=== PATIENT | male | born 2000 | race Two or more races ===

== ENCOUNTER 2025-04-06 03:14 | Emergency (ER) | payer MEDICAID, SELFPAY ==
[2025-04-06 03:15] VITALS: BMI 22.4
[2025-04-06 03:27] VITALS: BP 120/74; PULSE 69; RESP 19; TEMP 36.5; O2SAT 100
--- NOTE | 2025-04-06 04:43 | XR_ITS ---
Examination: PA chest single view Technique: Upright PA chest single view Date and time: April 06, 2025 0445 hrs. Indications: Chest chest pain beginning 2 weeks ago. Findings: Normal heart size. Lungs are clear. The osseous structures are intact Impression: No active disease
--- NOTE | 2025-04-06 04:44 | PD.EDRME ---
Rapid Medical Screening Exam RME Arrival date/time: 04/06/25 03:14 24M with history of anxiety presents to ED with 2 weeks of CP every day. Patient denies URI symptoms. Patient states this doesn't feel like his anxiety attacks. Chief Complaint: Chest Pain Vital signs: Vital Signs Temperature 97.7 F 04/06/25 03:27 Pulse Rate 69 04/06/25 03:27 Respiratory Rate 19 04/06/25 03:27 Blood Pressure 120/74 04/06/25 03:27 Pulse Oximetry (%) 100 04/06/25 03:27 Oxygen Delivery Method Room Air 04/06/25 03:27
[2025-04-06] MEDS: DIAZEPAM 5 MG TABLET PO (05:09)
[2025-04-06 05:10] VITALS: BP 120/64; PULSE 67; RESP 19; TEMP 36.4; O2SAT 97
[2025-04-06 05:19] LABS: Basophils # (Auto) 0.0 Thou/mm3 (0.0-0.2); Basophils % (Auto) 1 % (0-2.5); Eosinophils # (Auto) 0.2 Thou/mm3 (0.0-0.5); Eosinophils % (Auto) 3 % (0-10); Hematocrit 34.2 % (41.0-53.0); Hemoglobin 10.5 g/dL (13.5-16.0); Immature Granulocytes Auto 0.01 Thou/mm3 (0.00-0.00); Lymphocytes # (Auto) 1.9 Thou/mm3 (1.0-4.8); Lymphocytes % (Auto) 30 % (10-50); Mean Corpuscular HGB Conc 30.7 g/dl (31.0-37.0); Mean Corpuscular Hemoglobin 23.9 pg (25.0-35.0); Mean Corpuscular Volume 78 fL (80-100); Monocytes # (Auto) 0.7 Thou/mm3 (0.0-0.8); Monocytes % (Auto) 12 % (0-12); Neutrophils # (Auto) 3.3 Thou/mm3 (1.8-7.7); Neutrophils % (Auto) 54 % (37-80); Nucleated Red Blood Cell # 0.00 Thou/mm3 (0.00-0.00); Nucleated Red Blood Cell % 0 /100 WBC (0); Platelet Count 247 Thou/mm3 (140-440); RDW Standard Deviation 45.2 fL (35.1-43.9); Red Blood Count 4.40 Miln/mm3 (4.50-5.90); White Blood Count 6.2 Thou/mm3 (3.8-10.6)
[2025-04-06 05:31] LABS: Amphetamine/Methamp Scrn,U Negative (Negative); Barbiturate Screen,Urine Negative (Negative); Benzodiazepines Screen,Urine Negative (Negative); Benzoylecgonine Screen, Ur Negative (Negative); Fentanyl Screen,Urine Negative (Negative); Opiate Screen,Urine Negative (Negative); THC Screen,Urine Negative (Negative)
[2025-04-06 05:36] LABS: Alanine Aminotransferase 24 U/L (10-49); Albumin, Serum 4.5 gm/dL (3.5-5.0); Albumin/Globulin Ratio 1.6 (1.2-2.2); Alkaline Phosphatase 78 U/L (46-116); Anion Gap 9 (7-16); Aspartate Amino Transferase 28 U/L (0-34); BUN/Creatinine Ratio 9 Ratio (12-20); Bilirubin,Total 0.3 mg/dL (0.3-1.2); Blood Urea Nitrogen 9 mg/dL (9-23); Calcium 9.2 mg/dL (8.3-10.6); Calcium (Corrected) 9.2 mg/dL (8.5-10.1); Carbon Dioxide 24.7 mMol/L (20.0-31.0); Chloride 106 mMol/L (98-107); Creatinine (Component) 1.0 mg/dL (0.6-1.3); Estimated Creatinine Clearance 129.0 mL/min (>60); Globulin 2.8 gm/dL (2.3-3.5); Glucose 96 mg/dL (74-106); Osmolality,Calculated 278 (275-295); Potassium 4.0 mMol/L (3.4-5.1); Sodium 140 mMol/L (136-145); Total Protein 7.3 gm/dL (5.7-8.2); Troponin I < 0.002 ng/mL (0.0-0.045); eGFR > 60 See Note
--- NOTE | 2025-04-06 07:35 | EDNOTE_ITS ---
<Statement entered by Haily Fontenot MD - 04/25/25 06:08> As co-signing physician, I was present and available for consult prn. I concur with the plan and care as documented by the midlevel provider. ED Chest Pain RME/HPI General Chief Complaint: Chest Pain Stated Complaint: CHEST PAIN X2 WEEKS Time Seen by Provider: 04/06/25 07:34 Arrival date/time: 04/06/25 03:14 24M with history of anxiety presents to ED with 2 weeks of CP every day. Patient denies URI symptoms. Patient states this doesn't feel like his anxiety attacks. Limitations: no limitations RME / HPI RME / HPI narrative: 04/06/25 03:14 24M with history of anxiety presents to ED with 2 weeks of CP every day. Patient denies URI symptoms. Patient states this doesn't feel like his anxiety attacks. Related Data Previous Rx's ?Medication ?Instructions ?Recorded baclofen 10 mg tablet 10 mg PO BID #14 tabs ibuprofen 800 mg tablet 800 mg PO TID PRN pain #30 t abs 01/23/22 hydrocodone 5 mg-acetaminophen 325 1 tab PO BID PRN pa in #10 tabs 04/30/22 mg tablet ibuprofen 600 mg tablet 600 mg PO Q8H PRN pain #20 tabs 04/30/22 ibuprofen 600 mg tablet 600 mg PO TID PRN fever or p ain 10/20/22 #30 tabs hydrocodone 5 mg-acetaminophen 325 1 tab PO BID PRN pa in #10 tabs 08/25/23 mg tablet ibuprofen 800 mg tablet 800 mg PO TID PRN pain #30 t abs 08/25/23 Allergies Allergy/AdvReac Type Severity Reaction Status Date / Time No Known Allergies Allergy Verified 08/25/23 17:33 Review of Systems Review of Systems Systems Reviewed: All systems reviewed, normal except as documented Constitutional Constitutional: Reports system reviewed and no additional complaints, except as documented, Denies fever(s) and Denies headache(s) Eyes Eyes: Reports system reviewed and no additional complaints, except as documented and Denies blurry vision ENT Ears, Nose, Mouth, and Throat: Reports system reviewed and no additional complaints, except as documented, Denies headache(s), Denies nasal congestion and Denies nasal discharge Cardiovascular Cardiovascular: Reports system reviewed and no additional complaints, except as documented, Reports chest pain and Denies dyspnea Respiratory Respiratory: Reports system reviewed and no additional complaints, except as documented, Denies chest congestion, Denies cough and Denies dyspnea Gastrointestinal Gastrointestinal: Reports system reviewed and no additional complaints, except as documented and Denies abdominal pain Integumentary/Breasts Skin/Breast: Reports system reviewed and no additional complaints, except as documented and Denies rash Neurologic Neurologic: Reports system reviewed and no additional complaints, except as documented, Reports as per HPI and Denies headache(s) Psychiatric Psychiatric: Reports system reviewed and no additional complaints, except as documented and Reports anxiety Past Medical History Social History SMOKING STATUS: Never smoker ED Exam General Limitations: Present no limitations General appearance: Present alert and in no apparent distress Head Head exam: Present atraumatic, normocephalic and normal inspection Eye Eye exam: Present normal appearance, PERRL and EOMI; Absent conjunctival injection ENT ENT exam: Present normal exam, normal oropharynx and mucous membranes moist Neck Neck exam: Present normal inspection, full ROM and trachea midline Chest Chest inspection: Present normal inspection and symmetric chest wall rise Respiratory Respiratory exam: Present normal lung sounds bilaterally; Absent respiratory distress Cardiovascular Cardiovascular exam: Present regular rate, normal rhythm and normal heart sounds Abdominal Exam Abdominal exam: Present soft and normal bowel sounds Extremities Exam Extremities exam: Present normal inspection and full ROM Back Exam Back exam: Present normal inspection and full ROM Neurological Exam Neurological exam: Present alert, oriented X3 and CN II-XII intact Psychiatric Psychiatric exam: Present normal affect and normal mood Skin Skin exam: Present warm, dry, intact and normal color; Absent rash Course Quality Measures none Orders Category Date Time Status EKG (ED ONLY) *Do not use* NOW Care 04/06/25 03:26 Completed EKG (ED Only) Stat Exams 04/06/25 03:26 Ordered XR chest 1V portable Stat Exams 04/06/25 04:43 Completed CBC Stat Lab 04/06/25 05:00 Completed Comprehensive Metabolic Panel Stat Lab 04/06/25 05:00 Completed Drug Screen,Urine Stat Lab 04/06/25 04:53 Completed Troponin I Stat Lab 04/06/25 05:00 Completed Diazepam [Valium] Med 04/06/25 04:43 Discontinued 5 mg PO X1 ONE Vital Signs Vital signs: Vital Signs Temperature 97.7 F 04/06/25 03:27 Pulse Rate 69 04/06/25 03:27 Respiratory Rate 19 04/06/25 03:27 Blood Pressure 120/74 04/06/25 03:27 Pulse Oximetry (%) 100 04/06/25 03:27 Oxygen Delivery Method Room Air 04/06/25 03:27 O2 saturation 100% room air within the limits PROCEDURES: EKG Interpretation #1: Date of EK04/06/25 Time of EK:19 Rate: 68 Interpretation: Interpreted by me EKG Impression: Normal sinus rhythm, No acute ST-T changes, No ectopy, No ischemic changes, Normal QRS, Normal intervals and Normal axis Chest Pain MDM Narrative MDM Narrative:: 24M with history of anxiety presents to ED with 2 weeks of CP every day. Patient denies URI symptoms. Patient states this doesn't feel like his anxiety attacks. On exam patient well-appearing patient does not appear toxic distress Lab work imaging and EKG obtained prior to my arrival EKG, lab work and imaging obtained no acute emergent findings noted Patient discharged home in no distress to follow-up with primary care doctor in the next 24 to 48 hours and for any worsening symptoms to return to the ER immediately Patient data External records reviewed:: [facility] previous records Clinical information provided by:: patient Social determinants that could affect healthcare access:: none Patient has the following chronic illnesses:: None How is presenting disease/condition affected by chronic disease/condition?: no chronic disease Evaluation data The following diagnostics were reviewed and interpreted by me:: lab results, radiology exam(s) and EKG tracing(s) Lab and/or radiology exams considered but not ordered:: Labs, radiology, EKG obtained Interpretation Summary: By me Medications / Prescriptions Medications or Prescriptions considered but not ordered:: Given Medication administrations:: Medication Administration History Discontinued Medications Diazepam (Diazepam 5 Mg Tablet) 5 mg PO X1 ONE Stop: 04/06/25 04:44 Last Admin: 04/06/25 05:09 Dose: 5 mg Documented By: SF Given Consultations Consultation(s) initiated? (list below): No Diagnosis Chest Pain Differential Diagnosis: fracture of rib, pneumothorax, stable angina, atypical chest pain, costochondritis and chest pain Most likely diagnosis given after review of the tests above:: Chest pain, anxiety Admission Indicated Admission indicated?: not indicated Admission Request Was there a request for admission?: No Disposition Plan Disposition Plan: Discharge Discharge Attestation Discharge Attestation: The patient and all family members were given an opportunity to ask questions and understood the discharge instructions. Discharge instructions specifically effects, indications for sooner follow up or return to the emergency department, and the expected course of current diagnosis. Patient condition: Stable Discharge Plan Plan Patient Disposition: HOME (Self Care) Discharge Disposition comment: Stable Prescriptions/Referrals Prescriptions/Med Rec: No Action baclofen 10 mg tablet 10 mg PO BID Qty: 14 0RF ibuprofen 800 mg tablet 800 mg PO TID PRN (Reason: pain) Qty: 30 0RF hydrocodone-acetaminophen 5-325 mg tablet 1 tab PO BID MDD 10 PRN (Reason: pain) Qty: 10 0RF ibuprofen 600 mg tablet 600 mg PO Q8H PRN (Reason: pain ) Qty: 20 0RF ibuprofen 600 mg tablet 600 mg PO TID PRN (Reason: fever or pain) Qty: 30 0RF ibuprofen 800 mg tablet 800 mg PO TID PRN (Reason: pain) Qty: 30 0RF hydrocodone-acetaminophen 5-325 mg tablet 1 tab PO BID MDD 10 PRN (Reason: pain) Qty: 10 0RF Referrals: Se Silver MD [Primary Care Provider, Family Practice] - 04/07/25 Problem List Clinical Impression: Atypical chest pain Patient/Caregiver Discharge Instructions Education Materials: ED Chest Pain, Noncardiac Additional Instructions: Please follow up with your primary care doctor in the next 24-48hrs for any worsening symptoms return here immediately Print Language: Malay Stand Alone Forms: [employer] Award Info., Work/School Release, Patient Portal Info Letter KYLIE/SOO Supervising Physician KYLIE/SOO Supervising Physician: dr fontenot
== END 2025-04-06 07:52 | disposition home or self-care (01) ==
PROVIDERS: Physician Assistant; Emergency Provider Emergency Medicine; PCP Family Medicine
DX: R07.89 Other chest pain (principal); F41.9 Anxiety disorder, unspecified
CPT/HCPCS: 36415; 71045; 80053; 80307; 84484; 85025; 93005; 99283; A9270